=== PATIENT | female | born 1975 | race Caucasian/White ===

== ENCOUNTER → 2016-11-08 | Outpatient (CLI) | payer BC ==
[~2016-11-08] MED LIST: CLTP PO; GADAVIST IV PRN; SAVELLA PO; SYN112 PO; [UNRECOGNIZED DRUG - OTHER] PO
--- NOTE | 2016-11-08 20:34 | DIAGNOSTIC IMAGING REPORT ---
MRI OF THE ORBITS WITH AND WITHOUT CONTRAST CLINICAL HISTORY: OPTIC DISC EDEMA COMPARISON STUDY: Head CT July 22, 2011. TECHNIQUE: Utilizing a 1.5 Genny magnet, multiplanar, multi echo imaging of the orbits was performed pre and postcontrast administration. Injection of 11 cc of Gadavist IV was uneventful. FINDINGS: The globes are intact. There is no orbital mass. Extraocular muscles are normal. The optic nerves are within normal limits by MRI. The adjacent soft tissues are unremarkable. There is mild mucosal thickening within the ethmoid sinuses. No intracranial masses are identified. A 7 mm white matter T2 hyperintense focus within the left parietal lobe is noted. This is better depicted on the MRI of the brain and is of doubtful significance. IMPRESSION: Unremarkable MRI of the orbits. Electronically signed by: Sukumar Chaney M.D. 11/08/2016 8:32 PM Dictated Date/Time: 11/08/2016 7:44 PM
--- NOTE | 2016-11-08 20:34 | DIAGNOSTIC IMAGING REPORT ---
MRI OF THE BRAIN WITHOUT AND WITH IV CONTRAST CLINICAL HISTORY: Optic disc edema. COMPARISON STUDY: Head CT July 22, 2011. TECHNIQUE: Utilizing a 1.5 Genny magnet and dedicated coil, multiplanar, multiecho imaging of the brain was performed pre and postcontrast administration. IV administration of 10.8 mL of Gadavist contrast was uneventful. FINDINGS: The orbit MRI will be reported separately. There are no areas of restricted diffusion. No acute intracranial hemorrhage, midline shift or mass effect is present. Brain volume is normal. Ventricular system is normal. Basilar cisterns are patent. Flow-voids for the major intracranial vessels are present. There is no intracranial mass or pathologic enhancement. There is a 7 mm T2 hyperintense white matter focus within the left parietal lobe. There is mild mucosal thickening of the ethmoid sinuses. Calvarial signal is maintained. IMPRESSION: 1. No acute intracranial findings. 2. No intracranial mass or pathologic enhancement. 3. 7 mm white matter T2 hyperintense focus within the left parietal lobe. This is nonspecific but of doubtful significance. This could reflect the sequela of migraine headaches or minimal small vessel disease. Electronically signed by: Sukumar Chaney M.D. 11/08/2016 8:32 PM Dictated Date/Time: 11/08/2016 7:31 PM
== END | disposition home or self-care (01) ==
LOC: C.MRI 17:47
PROVIDERS: ATTEND Ophthalmology
DX: H47.10 Unspecified papilledema (principal)

== ENCOUNTER → 2016-12-28 | Outpatient (CLI) | payer BC ==
[~2016-12-28] MED LIST changes: -GADAVIST IV PRN
[2016-12-28 12:33] LABS: C-REACTIVE PROTEIN 1.45 mg/dl (0-0.29); RHEUMATOID FACTOR < 10.0 U/mL (0-15); TOTAL IRON BINDING CAPACITY 373 mcg/dl (250-450)
[2016-12-28 12:35] LABS: URINE APPEARANCE CLEAR (CLEAR); URINE BILIRUBIN NEG (NEG); URINE COLOR YELLOW; URINE EPITHELIAL CELL AUTO >30 /lpf (0-5); URINE NITRITE NEG (NEG); URINE SPECIFIC GRAVITY 1.015 (1.000-1.030); UROBILINOGEN NEG (NEG)
[2016-12-28 12:46] LABS: MANUAL MICROSCOPIC REQUIRED? NO; REVIEW REQ? NO
[2017-01-01 02:48] LABS: ANTI-CENTROMERE AB <1.0 NEG AI (<1.0 NEG); ANTI-SS-A <1.0 NEG AI (<1.0 NEG); ANTI-SS-B 1.0 POS AI (<1.0 NEG); DNA ds CRITHIDIA NEGATIVE (NEGATIVE); PARVOVIRUS IgG INDEX 4.4 (<0.9); PARVOVIRUS IgM INDEX 0.1 (<0.9); Sm Antibody <1.0 NEG AI (<1.0 NEG)
== END | disposition home or self-care (01) ==
LOC: C.LAB1850 10:52
PROVIDERS: ATTEND Internal Medicine Rheumatology
DX: R53.83 Other fatigue (principal); M79.1 Myalgia; L65.9 Nonscarring hair loss, unspecified

== ENCOUNTER → 2017-03-08 | Outpatient (CLI) | payer BC ==
[2017-03-08 15:43] LABS: BASO % 0.4 %; BASO ABS # 0.03 K/uL (0-0.2); COMPLETE YES; EOS % 2.7 %; HEMATOCRIT 35.1 % (37-47); IG% 0.2 %; LYMPH % 22.9 %; LYMPH ABS # 1.88 K/uL (1.2-3.4); MEAN CELL VOLUME 83.6 fL (80-100); MEAN CORPUSCULAR HEMOGLOBIN 27.4 pg (25-34); MEAN CORPUSCULAR HGB CONC 32.8 g/dl (32-36); MEAN PLATELET VOLUME 9.9 fL (7.4-10.4); NEUT % 69.8 %; PLATELET COUNT 343 K/uL (130-400)
[2017-03-08 16:09] LABS: CREATININE 0.67 mg/dl (0.60-1.20)
== END | disposition home or self-care (01) ==
LOC: C.LAB1850 14:12
PROVIDERS: ATTEND Internal Medicine Rheumatology
DX: M79.1 Myalgia (principal); R76.8 Other specified abnormal immunological findings in serum

== ENCOUNTER → 2017-04-18 | Outpatient (CLI) | payer BC ==
[2017-04-18 09:33] LABS: BASO % 0.3 %; BASO ABS # 0.02 K/uL (0-0.2); COMPLETE YES; EOS % 2.4 %; HEMATOCRIT 34.3 % (37-47); IG% 0.1 %; LYMPH ABS # 1.55 K/uL (1.2-3.4); MEAN CELL VOLUME 85.3 fL (80-100); MEAN CORPUSCULAR HEMOGLOBIN 26.6 pg (25-34); MEAN CORPUSCULAR HGB CONC 31.2 g/dl (32-36); MEAN PLATELET VOLUME 9.9 fL (7.4-10.4); MONO % 4.9 %; NEUT % 72.3 %; PLATELET COUNT 333 K/uL (130-400); RED BLOOD COUNT 4.02 M/uL (4.2-5.4); WHITE BLOOD COUNT 7.76 K/uL (4.8-10.8)
[2017-04-18 09:51] LABS: CREATININE 0.82 mg/dl (0.60-1.20)
== END | disposition home or self-care (01) ==
LOC: C.LAB1850 07:18
PROVIDERS: ATTEND Internal Medicine Rheumatology
DX: R53.83 Other fatigue (principal); M79.1 Myalgia; L65.9 Nonscarring hair loss, unspecified; R76.8 Other specified abnormal immunological findings in serum; Z79.899 Other long term (current) drug therapy

== ENCOUNTER → 2017-07-25 | Day surgery (SDC) | payer BC, OTHER ==
[2017-07-07 11:41] VITALS: Ht 167.6 cm; Wt 109.1 kg
[~2017-07-25] VITALS: Ht 167.6 cm; Wt 109.1 kg
[~2017-07-25] MED LIST changes: +ATROPINE SULFATE 0.1 MG/ML 5ML SYR IV PRN; +BIOT1CAP9 PO; +CALC500C70 PO; +CEFAZOLIN 2000MG IV PUSH 10 ML IV SCH; +CEPH500C2 PO; -CLTP PO; +FENTANYL CITRATE INJ 50 MCG/1 ML 2 ML VIAL IV PRN; +FENTANYL CITRATE INJ 50 MCG/1 ML 2 ML VIAL ONE; +FERR1TAB PO; +FLUO40CA8 PO; +HYDR-5688 PO; +HYDR200T5 PO; +HYDROCODONE/ACETAMOPHEN 5/325MG TAB PO PRN; +KETOROLAC TROMETHAMINE 30 MG/ML VIAL IV. PRN; +LACTATED RINGER'S 1000ML 1,000 ML IV SCH; +LEVO200T6 PO; +LEVO25TA5 PO; +LEVO5TAB2 PO; +LIDOCAINE HCL 2% 2 ML VIAL (20MG/ML) ONE; +LIDOCAINE MPF 1% INJ 30 ML SDV (L&D) INFIL ONE; +MIDAZOLAM HCL 1 MG/ML 2ML VIAL ONE; +MONT1TAB3 PO; +MULT-827 PO; +ONDANSETRON INJ 2 MG/ML 2 ML VIAL IV PRN; +PROPOFOL IV EMULSION 10 MG/ML 20 ML VIAL IV ONE; -SAVELLA PO; +SODIUM CHLORIDE 0.9% 1000ML 1,000 ML IV SCH; -SYN112 PO; -[UNRECOGNIZED DRUG - OTHER] PO
--- NOTE | 2017-07-25 08:04 | History & Physical Bridge - [place] ---
H&P Re-Evaluation Bridge Note: I have examined the patient, reviewed the History & Physical and in the interval since the performance of the History & Physical I have noted the following changes of clinical significance: No changes noted
--- NOTE | 2017-07-25 08:14 | Discharge Instructions-SurgCtr ---
Discharge Instructions Date of Service Jul 25, 2017. Visit Reason for Visit: Sebaceous Cyst, Back Discharge Discharge Diagnosis / Problem: epidermoid cyst Discharge Goals Goal(s): Decrease discomfort, Improve function, Improve disease control Activity Recommendations Activity Limitations: as noted below Lifting Limitations: gradually increase as tolerated Exercise/Sports Limitations: until after follow-up appointment May Resume Sexual Activity: when tolerated Shower/Bathe: tomorrow Driving or Machine Use: resume 1 day after discharge Anesthesia . Post Anesthesia Instructions: If you have had General Anesthesia or IV Sedation: * Do not drive today. * Resume driving when surgeon permits. * Do not make important decisions or sign legal documents today. * Call surgeon for: 1. Temperature elevations greater than 101 degrees F. 2. Uncontrollable pain. 3. Excessive bleeding. 4. Persistent nausea and vomiting. 5. Medication intolerance (nausea, vomiting or rash). * For nausea and vomiting use only clear liquids such as: tea, soda, bouillon until nausea subsides, then gradually increase diet as tolerated. * If you have any concerns or questions, call your surgeon's office. If physician is unavailable and it is an emergency, call 911 or go to the nearest emergency room. . Instructions / Follow-Up Instructions / Follow-Up SPECIAL CARE INSTRUCTIONS: * Cover incisions and change daily for comfort/drainage. * May use ibuprofen for pain as tolerated. * Expect some swelling and bruising. Call your doctor if: * Temperature above 101 degrees * Pain not relieved by pain medicine ordered * There is increased drainage or redness from any incision * You have any unanswered questions or concerns [phone]. FOLLOW UP VISIT: If not already scheduled, please call the office for a follow-up visit. for next week- some suture removal OFFICE PHONE NUMBER: Dr. Hyde Office Diet Recommendations Home Diet: resume previous diet Pending Studies Studies pending at discharge: no Medical Emergencies . Who to Call and When: Medical Emergencies: If at any time you feel your situation is an emergency, please call 911 immediately. . Non-Emergent Contact Non-Emergency issues call your: Primary Care Provider, Surgeon . . "Provider Documentation" section prepared by Tang Hyde. .
--- NOTE | 2017-07-25 08:32 | [facility] Operative Report ---
Operative Report Operative Date Jul 25, 2017. Pre-Operative Diagnosis epidermoid cyst Post-Operative Diagnosis same Procedure(s) Performed excision epidermoid cyst Surgeon Hyde Findings 2 cm incision Anesthesia local/ sedation Complication(s) None Disposition Recovery Room / PACU I attest to the content of the Intraoperative Record and any orders documented therein. Any exceptions are noted below.
[2017-07-25 08:38] VITALS: TEMP 36.7
--- NOTE | 2017-07-25 08:44 | OPERATIVE REPORT ---
DATE OF OPERATION: 07/25/2017 PREOPERATIVE DIAGNOSIS: Epidermoid cyst. POSTOPERATIVE DIAGNOSIS: Same. NAME OF OPERATION: Excision of epidermoid cyst. STAFF SURGEON: Dr. Hyde. ANESTHESIA: 1% plain lidocaine with sedation. FINDINGS: The patient had a healing epidermoid cyst on her back which had previously been infected requiring incision and drainage. PROCEDURE: The patient was brought in the operating room and placed on the operating table in the prone position. Her cyst was in the right upper back. It was prepped and draped in usual fashion. 1% plain lidocaine was used to anesthetize skin, subcutaneous tissue and deep tissue. The patient had a scar from previous incision. Elliptical incision was made approximately 2 cm around this area carrying dissection down into the subcutaneous tissue, excising the cyst. Deep tissue was then reapproximated using 2-0 plain suture and then the skin reapproximated using 5-0 Prolene suture. Dressing applied and patient transferred to recovery room in stable condition. I attest to the content of the Intraoperative Record and any orders documented therein. Any exception s are noted below.
--- NOTE | 2017-07-25 09:07 | Anesthesia Progress Nt - [facility] ---
Anesthesia Post Op Note Date & Time Jul 25, 2017 at 09:06 Vital Signs Pain Intensity: 0 Vital Signs Past 12 Hours Date Time Temp Pulse Resp B/P (MAP) Pulse Ox O2 Delivery O2 Flow Rate FiO2 07/25/17 08:38 36.7 68 16 129/83 (98) 99 Room Air 07/25/17 07:27 36.8 76 22 141/106 (118) 100 Room Air Notes Mental Status: alert / awake / arousable, participated in evaluation Pt Amnestic to Procedure: Yes Nausea / Vomiting: adequately controlled Pain: adequately controlled Airway Patency, RR, SpO2: stable & adequate BP & HR: stable & adequate Hydration State: stable & adequate Anesthetic Complications: no major complications apparent
[2017-07-25 09:09] VITALS: BP 131/82; PULSE 72; O2SAT 100
== END | disposition home or self-care (01) ==
LOC: X.SURG 07:10
PROVIDERS: ATTEND Surgery
DX: L72.0 Epidermal cyst (principal); I10 Essential (primary) hypertension; F41.9 Anxiety disorder, unspecified; F32.9 Major depressive disorder, single episode, unspecified; Z79.899 Other long term (current) drug therapy; Z98.890 Other specified postprocedural states; Z98.84 Bariatric surgery status; J45.909 Unspecified asthma, uncomplicated; Z87.891 Personal history of nicotine dependence; Z85.850 Personal history of malignant neoplasm of thyroid; Z82.49 Family history of ischemic heart disease and other diseases of the circulatory system; Z82.5 Family history of asthma and other chronic lower respiratory diseases; Z80.7 Family history of other malignant neoplasms of lymphoid, hematopoietic and related tissues